=== PATIENT | male | born 1940 | race Caucasian/White ===

== ENCOUNTER 2016-08-30 09:41 | Emergency (ER) | payer MEDICARE, MEDICAID ==
[2016-08-30] MEDS ORDERED: Adacel (T-DAP) 0.5 ML VIAL ONE (10:17)
[2016-08-30] MEDS ORDERED: diphenhydrAMINE HCl 25 MG CAP ONE (10:17)
[2016-08-30] MEDS ORDERED: Dexamethasone 4 mg/ml Vial ONE (10:17)
[2016-08-30 10:37] LABS: #Basophils 0.1 thou/uL (0.0-0.2); #Eosinphils 0.1 thou/uL (0.0-0.7); #Lymphocytes 1.5 thou/uL (1.20-3.40); #Monocytes 0.6 thou/uL (0.11-0.59); #Neutrophils 3.6 thou/uL (1.40-6.50); %Lymphocytes 25.6 % (21.0-51.0); %Monocytes 10.1 % (0.0-10.0); %Neutrophils 62.3 % (42.0-75.0); Hemoglobin 19.3 g/dL (14.0-18.0); Mean Corpuscular HGB CONC 32.2 g/dL (32.0-36.0); Mean Corpuscular Hemoglobin 32.2 pg (27.0-31.0); Mean Corpuscular Volume 99.9 fl (80.0-94.0); Mean Platelet Volume 6.1 fL (7.4-10.4); Platelet Count 251 thou/uL (130-400); RBC Distribution Width 12.6 % (11.5-14.5); White Blood Cell (WBC) Count 5.7 thou/uL (4.8-10.8)
[2016-08-30 10:41] LABS: INR-International Normal Ratio 0.9; Prothrombin Time 12.6 SEC (12.0-14.7)
[2016-08-30 10:53] LABS: ALT (SGPT) 11 U/L (8-55); AST (SGOT) 18 U/L (5-34); Alkaline Phosphatase 119 U/L (40-150); Anion Gap 19 mmol/L (10-20); BUN (Urea Nitrogen) 6 mg/dL (8.4-25.7); Bilirubin, Total 0.9 mg/dL (0.2-1.2); CK (CPK) 50 U/L (30-200); Calc. Creatinine Clearance 0 mL/min (70-130); Calcium 9.2 mg/dL (7.8-10.44); Carbon Dioxide 20 mmol/L (23-31); Chloride 103 mmol/L (98-107); Estimated GFR-MDRD 90; Globulin 3.2 g/dL (2.4-3.5); Glucose 89 mg/dL (83-110); Lipase 34 U/L (8-78); Potassium 4.5 mmol/L (3.5-5.1); Protein, Total 7.2 g/dL (5.8-8.1); Sodium 137 mmol/L (136-145)
[2016-08-30 10:54] LABS: Troponin I Less than 0.010 ng/mL (< 0.028)
--- NOTE | 2016-08-30 18:00 | RAD ---
PORTABLE CHEST 08/30/16 An AP portable film at 1006 is compared with a 09/19/12 study. The patient is turned partially to the left which distorts seeing some areas well. There has been no adverse interval change. The heart does not seem enlarged today. The aorta is quit e dilated and calcified and tortuous. Scoliosis is present. No pulmonary edema or focal pulmonary in filtrate was seen. There is no pleural effusion. CT would be needed elective to better evaluate the aortic arch and its size and whether it is aneurysmally dilated or not. IMPRESSION: No acute thoracic finding. POS: HOME
== END 2016-08-30 11:05 | disposition home or self-care (01) ==
LOC: BURERS 09:41
DX: S50.362A Insect bite (nonvenomous) of left elbow, initial encounter (principal); F17.210 Nicotine dependence, cigarettes, uncomplicated; W57.XXXA Bitten or stung by nonvenomous insect and other nonvenomous arthropods, initial encounter
CPT/HCPCS: 36416; 71010; 80053; 82553; 83690; 84484; 85025; 85610; 90471; 90715; 93005; 36415-59; J1100

== ENCOUNTER 2018-06-02 09:03 | Emergency (ER) | payer MEDICARE, MEDICAID ==
[2018-06-02 09:44] LABS: #Basophils 0.1 thou/uL (0.0-0.2); #Eosinphils 0.1 thou/uL (0.0-0.7); #Monocytes 0.3 thou/uL (0.11-0.59); #Neutrophils 3.3 thou/uL (1.40-6.50); %Basophils 1.5 % (0.0-1.0); %Lymphocytes 21.4 % (21.0-51.0); %Monocytes 7.2 % (0.0-10.0); %Neutrophils 68.9 % (42.0-75.0); Hemoglobin 17.9 g/dL (14.0-18.0); Mean Corpuscular HGB CONC 32.9 g/dL (32.0-36.0); Mean Corpuscular Hemoglobin 33.3 pg (27.0-31.0); Platelet Count 249 thou/uL (130-400); RBC Distribution Width 11.5 % (11.5-14.5); Red Blood Cell (RBC) Count 5.37 mill/uL (4.70-6.10); White Blood Cell (WBC) Count 4.8 thou/uL (4.8-10.8)
[2018-06-02 09:45] LABS: ALT (SGPT) 13 U/L (8-55); AST (SGOT) 17 U/L (5-34); Alkaline Phosphatase 154 U/L (40-150); Anion Gap 16 mmol/L (10-20); BUN (Urea Nitrogen) 8 mg/dL (8.4-25.7); Bilirubin, Total 0.8 mg/dL (0.2-1.2); Calc. Creatinine Clearance 0 mL/min (70-130); Calcium 9.6 mg/dL (7.8-10.44); Carbon Dioxide 24 mmol/L (23-31); Chloride 95 mmol/L (98-107); Estimated GFR-MDRD Greater than 90; Globulin 3.5 g/dL (2.4-3.5); Glucose 96 mg/dL (83-110); Potassium 4.5 mmol/L (3.5-5.1); Protein, Total 7.5 g/dL (5.8-8.1); Sodium 130 mmol/L (136-145)
[2018-06-02] MEDS ORDERED: traMADol HCl 50 MG TAB ONE (10:07)
--- NOTE | 2018-06-02 11:35 | CT ---
CT OF THE LUMBAR SPINE: Date: 06/02/[address] of the lumbar spine was performed for evaluation of back pain. Axial slices were acquired, and coronal and sagittal reconstructions were done. FINDINGS: There is no major acute fracture. The superior end plate of L3 is beginning to compress slightly, par ticularly on the middle portion to the left side of the vertebra. There is no dislocation of any vert ebra. Diffusely moderately severe degenerative changes are seen throughout the spine. The aorta is de nsely calcified. Findings by level follow: T11-T12: Seen incompletely, but no acute findings. T12-L1: No acute findings. L1-L2: There is a mild concentric bulge of the disc without focal protrusion or foraminal stenosis. L2-L3: No acute findings. L3-L4: There is a diffuse bulge of the disc along with some facet and ligamentous hypertrophy yieldi ng a mild central canal stenosis. L4-L5: There is a diffuse disc bulge along with facet and ligamentous hypertrophy yielding mild spin al stenosis. There appears to be a far right lateral protrusion of the disc, but without any definite neural impingement. Correlate with clinical symptoms. 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 L5-S1: There is a diffuse bulge of the disc. A very tiny disc fragment is suggested in the left neur al foramen at this level. I am not convinced that it is impinging on the exiting nerve root. If the p atient had a left L5 radiculopathy, the finding would take on more meaning. Facet arthritis is promin ent here as well. IMPRESSION: Diffuse degenerative changes as noted above. Mild spinal stenosis at L3-L4 and L4-L5. Probable tiny d isc fragment in the left neural foramen at L5-S1 without clear impingement. Correlate findings with c linical exam and symptoms. POS: HOME
== END 2018-06-02 10:19 | disposition home or self-care (01) ==
LOC: BURERS 09:03
DX: S39.92XA Unspecified injury of lower back, initial encounter (principal); K21.9 Gastro-esophageal reflux disease without esophagitis; F17.210 Nicotine dependence, cigarettes, uncomplicated; W19.XXXA Unspecified fall, initial encounter
CPT/HCPCS: 36415; 72131; 80053; 84484; 85025; 93005

== ENCOUNTER 2018-06-12 08:47 | Emergency (ER) | payer MEDICARE, MEDICAID ==
[2018-06-12] MEDS ORDERED: Ketorolac Tromethamine 60 MG/2 ML VIAL ONE (09:08)
[2018-06-12] MEDS ORDERED: Cyclobenzaprine 10 MG TAB ONE (09:09)
== END 2018-06-12 09:22 | disposition home or self-care (01) ==
LOC: BURERS 08:47
DX: M54.5 Low back pain (principal); K21.9 Gastro-esophageal reflux disease without esophagitis; F17.210 Nicotine dependence, cigarettes, uncomplicated
CPT/HCPCS: 96372; J1885